=== PATIENT | male | born 1965 | race Caucasian/White ===

== ENCOUNTER 2020-08-14 13:22 | Emergency (ER) | payer OTHER ==
--- OUTSIDE RECORDS SUMMARY | 2020-08-14 13:24 | XMS REPORT | Continuity of Care Document ---
:1965 Author Organization [facility] t Address [address] [place] [address] Care Team Providers Name Role Phone Radiology Attending Clinician Unavailable Problems This patient has no known problems. Allergies, Adverse Reactions, Alerts This patient has no known allergies or adverse reactions. Medications This patient has no known medications. Procedures This patient has no known procedures. Encounters Start End Encounter Admission Attending Care Care Encounter Source Date/Time Date/Time Type Type Clinicians Facility Department ID 2020-06-30 2020-06-30 [facility] Radiology [facility] [id number] 13:20:00 23:59:00 Encounter [place] [id number] [place] [id number] [place] [id number] Results This patient has no known results.
[2020-08-14] MEDS ORDERED: NA CHLORIDE 0.9% 500 ML ONE (14:08)
[2020-08-14 14:11] LABS: Absolute Lymphocytes (CBC) 1.4 K/uL (0.7-4.9); Basophils % 0.5 % (0-1.3); Hematocrit 43.1 % (39.6-49.0); Lymphocytes % 14.2 % (15.3-44.8); MPV 7.8 fL (7.6-11.3); RBC Red Blood Cell Count 5.44 M/uL (4.33-5.43)
[2020-08-14 14:27] LABS: Albumin 3.7 g/dL (3.4-5.0); Bilirubin Direct 0.2 mg/dL (0-0.2); Bilirubin Total 0.7 mg/dL (0.2-1.0); Potassium 3.7 mmol/L (3.5-5.1); Protein, Total 7.3 g/dL (6.4-8.2)
--- NOTE | 2020-08-14 14:39 | RAD REPORT ---
EXAM DESCRIPTION: CT - Abdomen Pelvis W Contrast - 08/14/2020 2:09 pm CLINICAL HISTORY: Abd pain;Constipation COMPARISON: No comparisons TECHNIQUE: Biphasic, helical CT imaging of the abdomen and pelvis was performed following 100 ml non -ionic IV contrast. No oral contrast was given. All CT scans are performed using dose optimization technique as appropriate and may include automated exposure control or mA/KV adjustment according to patient size. FINDINGS: No suspicious findings in the lung bases. The liver, spleen, and pancreas show no suspicious findings. Gallbladder and biliary tree are also wi thout suspicious finding. Symmetric renal function is seen with no hydronephrosis or suspicious renal mass. No pyelonephritis o r acute parenchymal process. No bladder abnormalities. No adrenal abnormalities. Stomach is distended with retained fluid. No gastric wall thickening for mass. Duodenum is unremarkab le. Proximal jejunum is unremarkable as well. There is progressive dilatation from the mid jejunum to the distal ileum. Distal ileum loops are dilated up to 4 cm. An abrupt transition is present near th e terminal ileum. The terminal ileum itself of the ileocecal valve is decompressed. There is fluid wi thin nondilated colon. No active colon process. No free air, free fluid or inflammatory stranding. No hernia, mass or bulky lymphadenopathy. No suspicious bony findings. IMPRESSION: Significant small bowel obstruction with an abrupt transition in the distal ileum. Given the history, this is most likely Crohn's related stricture. No free air, extravasation of bowel content or surgically emergent finding.
[2020-08-14] MEDS ORDERED: dexAMETHasone 10 MG/ML VIAL ONE (15:19)
--- NOTE | 2020-08-14 15:44 | ER ---
Nurse's Notes [facility] [place] Name: Oz Cardona Age: 54 yrs Sex: Male : 1965 Arrival Date: 08/14/2020 Time: 13:25 Bed 17 Private MD: Nils Mills H Diagnosis: Small bowel obstruction with stricture;Dehydration Presentation: 08/14 13:47 Chief complaint: Patient states: Abdominal pains, constipation off/on for 3 months. ll1 Fare up this weekend. Dr. Frederick sent him in for eval. Had Remicade infusion last . Coronavirus screen: Client denies travel out of the [place] in the last 14 days. At this time, the client does not indicate any symptoms associated with coronavirus-19. The client reports previous COVID testing was negative. Ebola Screen: Patient denies travel to an Ebola-affected area in the 21 days before illness onset. Initial Sepsis Screen: Does the patient meet any 2 criteria? HR > 90 bpm. Risk Assessment: Do you want to hurt yourself or someone else? Patient reports no desire to harm self or others. Onset of symptoms was May 2020. 13:47 Method Of Arrival: Ambulatory [facility] 13:47 Acuity: SIENNA 3 ll1 Historical: - Allergies: 13:50 Zofran; ll1 - PMHx: 13:50 chrons; SBO; ll1 - PSHx: 13:50 endoscopy; finger surgery; ll1 - Immunization history:: Flu vaccine is up to date. - Social history:: Smoking status: Patient denies any tobacco usage or history of. Patient/guardian denies using IV drugs. - Family history:: not pertinent. - Hospitalizations: : No recent hospitalization is reported. Screenin:00 Abuse screen: Denies threats or abuse. Denies injuries from another. Nutritional jl7 screening: No deficits noted. Tuberculosis screening: No symptoms or risk factors identified. Fall Risk IV access (20 points). Assessment: 14:00 General: Appears in no apparent distress. uncomfortable, Behavior is cooperative, jl7 appropriate for age, anxious. Pain: Complains of pain in umbilical area Pain currently is 4 out of 10 on a pain scale. at worst was 9 out of 10 on a pain scale. Neuro: Level of Consciousness is awake, alert, obeys commands, Oriented to person, place, time, situation. Cardiovascular: Patient's skin is warm and dry. Respiratory: Airway is patent Respiratory effort is even, unlabored, Respiratory pattern is regular, symmetrical. GI: Abdomen is round Reports nausea. Derm: Skin is pink, warm \T\ dry. 15:00 Reassessment: Patient appears in no apparent distress at this time. Patient and/or jl7 family updated on plan of care and expected duration. Pain level reassessed. Patient is alert, oriented x 3, equal unlabored respirations, skin warm/dry/pink. 16:30 Reassessment: Spoke with patient about his concerns of not having a way to get home dm5 from [facility] if transferred via ambulance. I told him we could not just let him go home to get his stuff and come back because we could not account for the time him leaving to returning here. He would still end up without a vehicle in [place]. Pt states he understands the risks of leaving against medical advice, including that his insurance may question 2 ED visits. He understands that he will have to go through the ED again at [facility] to get admitted because it will no longer be a transfer. Pt wants the NG tube and IV removed so that he can get his stuff and drive himself to [facility]. Pt given 2 radiology disks and chart we would normally send with a transfer along with the address of the emergency room at [facility]. Vital Signs: 13:47 BP 137 / 96; Pulse 98; Resp 17; Temp 98.3; Pulse Ox 94% ; Pain 0/10; ll1 15:00 BP 112 / 87; Pulse 77; Resp 15; Pulse Ox 93% on R/A; jl7 16:00 BP 140 / 93; Pulse 98; Resp 19; Pulse Ox 98% ; 7 ED Course: 13:25 Patient arrived in ED. ds1 13:25 Nils Mills MD is Private Physician. ds1 13:45 Carlos Turpin MD is Attending Physician. rn 13:49 Triage completed. ll1 13:50 Arm band placed on Patient placed in an exam room, on a stretcher. ll1 13:55 Inserted saline lock: 20 gauge in right antecubital area, using aseptic technique. ll1 Blood collected. 14:00 Patient has correct armband on for positive identification. Bed in low position. Call jl7 light in reach. Side rails up X 1. 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 Pulse ox on. NIBP on. 14:04 Frankie Wilson, RN is Primary Nurse. jl7 14:11 CT Abd/Pelvis - PO and IV Contrast In Process Unspecified. EDMS 15:34 initiated transfer to [facility]. bd 16:15 NGT: inserted 16 Fr. via right nare. verified placement of air over stomach, verified jl7 return of gastric contents, to intermittent suction. Returned bile. Patient tolerated poorly. 16:31 pt accepted in transfer to [facility] by dr Ramos, admit approval given bd by Elliott Donato. 16:45 NGT: Removed intact. jl7 16:45 No provider procedures requiring assistance completed. IV discontinued, intact, jl7 bleeding controlled, No redness/swelling at site. Pressure dressing applied. Administered Medications: 15:10 Drug: NS 0.9% 500 ml Route: IV; Rate: bolus; Site: right antecubital; jl7 15:45 Follow up: Response: No adverse reaction; IV Status: Completed infusion; IV Intake: jl7 500ml 15:10 Drug: Decadron - Dexamethasone 10 mg Route: IVP; Site: right antecubital; jl7 15:45 Follow up: Response: No adverse reaction jl7 Intake: 15:45 IV: 500ml; Total: 500ml. jl7 Outcome: 15:44 ER care complete, transfer ordered by . belén 16:45 AMA AMA form signed jl7 17:04 Patient left the ED. iw Signatures: Dispatcher [employer] EDDE Jaky Murdock Deana, RN RN Christen Albert ds1 Nenita Tavarez RN RN iw Carlos Turpin MD MD rn Leal, Jahala RN RN jl7 Freya Alberts RN RN ll1 Corrections: (The following items were deleted from the chart) 16:54 14:00 Reassessment: 7 jl7
--- NOTE | 2020-08-14 15:44 | EDPHYS ---
Physician Documentation [facility] [place] Name: Oz Cardona Age: 54 yrs Sex: Male : 1965 Arrival Date: 08/14/2020 Time: 13:25 Bed 17 Private MD: Nils Mills H ED Physician Carlos Turpin HPI: 08/14 15:29 This 54 yrs old Male presents to ER via Ambulatory with complaints of rn Dehydration, Constipation - Sent by Dr Mills. 15:29 The patient presents with abdominal pain abdominal distention. Onset: The rn symptoms/episode began/occurred 3 week(s) ago. The symptoms do not radiate. Associated signs and symptoms: Pertinent positives: constipation, nausea, Pertinent negatives: blood in stools. The symptoms are described as crampy. Modifying factors: The symptoms are alleviated by nothing, the symptoms are aggravated by drinking, touching the area. Severity of pain: At its worst the pain was moderate in the emergency department the pain is unchanged. The patient has experienced a previous episode. The patient has been recently seen by a physician:. Reports 3 months ago began with abd issues, no hx of abd issues in past, + abd distension and nausea with constipation, CT at that time showed obstruction as well as inflammatory change in small and large bowel, thought to be from IBD, no tissue diagnosis. Reports only able to take sips of water, feels dehydrated. Has had steroids and 2 shots of remicade without help. Worse over last 3 weeks. . Historical: - Allergies: 13:50 Zofran; ll1 - PMHx: 13:50 chrons; SBO; ll1 - PSHx: 13:50 endoscopy; finger surgery; ll1 - Immunization history:: Flu vaccine is up to date. - Social history:: Smoking status: Patient denies any tobacco usage or history of. Patient/guardian denies using IV drugs. - Family history:: not pertinent. - Hospitalizations: : No recent hospitalization is reported. ROS: 15:39 Constitutional: Negative for fever, chills, and weight loss, Neck: Negative for injury, rn pain, and swelling, Cardiovascular: Negative for chest pain, palpitations, and edema, Respiratory: Negative for shortness of breath, cough, wheezing, and pleuritic chest pain, Abdomen/GI: + abd pain and distension MS/Extremity: Negative for injury and deformity, Skin: Negative for injury, rash, and discoloration, Neuro: Negative for headache, numbness, tingling, and seizure. Exam: 15:39 Constitutional: This is a well developed, well nourished patient who is awake, alert, rn and in no acute distress. Head/Face: Normocephalic, atraumatic. ENT: dry MM Cardiovascular: Regular rate and rhythm. No pulse deficits. Respiratory: No increased work of breathing, no retractions or nasal flaring. Abdomen/GI: soft, mild epigastric and periumbilical tenderness Skin: Warm, dry MS/ Extremity: Pulses equal, no cyanosis. Neurovascular intact. Full, normal range of motion. Equal circumference. Neuro: Awake and alert, GCS 15 Vital Signs: 13:47 BP 137 / 96; Pulse 98; Resp 17; Temp 98.3; Pulse Ox 94% ; Pain 0/10; ll1 15:00 BP 112 / 87; Pulse 77; Resp 15; Pulse Ox 93% on R/A; jl7 16:00 BP 140 / 93; Pulse 98; Resp 19; Pulse Ox 98% ; jl7 MDM: 13:45 Patient medically screened. rn 14:02 Refusal of service: The patient/guardian displays adequate decision making capability rn and despite a detailed discussion of alternatives, benefits, risks, and consequences refuses: Oral contrast. 15:01 ED course: Called Dr. Mills for consultation, did not answer, will try again.. rn 15:34 ED course: Spoke with GI at [facility], will be happy to see Mr. Cardona, but feels like rn most likely will require surgery. Patient had already expressed his concern regarding surgery at this hospital and told me if surgical repair warranted, wants to be transferred to [place] and will not have surgery here. . 15:39 Differential diagnosis: bowel obstruction, stricture, IBD. Data reviewed: vital signs, rn nurses notes, lab test result(s), radiologic studies, CT scan, and as a result, I will admit patient. Counseling: I had a detailed discussion with the patient and/or guardian regarding: the historical points, exam findings, and any diagnostic results supporting the discharge/admit diagnosis, lab results, radiology results, the need to transfer to another facility, for higher level of care, [facility] does not immediately have the required specialist. ED course: Accepted for consultation by Dr. Cespedes at [facility], requests admission to hospitalist. . 16:32 ED course: Pt now refusing transfer to [facility], after transfer has been completed and rn I have spoken with hospitalist/GI/surgeon. 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 Explained to him dangers of leaving here and if leaves would have to re-initiate everything, states he understands. Had ER direct Martine Garza speak with patient to explore options, patient settles on leaving AMA, getting his things, and then driving himself to [facility], even if has to check in to ER. . 08/14 13:50 Order name: Basic Metabolic Panel; Complete Time: 14:34 08/14 13:50 Order name: CBC with Diff; Complete Time: 14:16 08/14 13:50 Order name: Hepatic Function; Complete Time: 14:34 rn 08/14 13:50 Order name: Lipase; Complete Time: 14:34 08/14 16:55 Order name: CREATININE WHOLE BLOOD EDWY 08/14 13:50 Order name: IV Saline Lock; Complete Time: 14:05 08/14 13:50 Order name: Labs collected and sent; Complete Time: 14:05 08/14 13:51 Order name: CT Abd/Pelvis - PO and IV Contrast; Complete Time: 14:48 08/14 14:50 Order name: NG Tube; Complete Time: 16:20 rn 08/14 14:59 Order name: NPO; Complete Time: 16:20 rn Administered Medications: 15:10 Drug: NS 0.9% 500 ml Route: IV; Rate: bolus; Site: right antecubital; jl7 15:45 Follow up: Response: No adverse reaction; IV Status: Completed infusion; IV Intake: jl7 500ml 15:10 Drug: Decadron - Dexamethasone 10 mg Route: IVP; Site: right antecubital; jl7 15:45 Follow up: Response: No adverse reaction jl7 Disposition: 08/14/20 17:00 Patient has left against medical advice. Impression: Small bowel obstruction with stricture, Dehydration. - Patients states they are going to Home. - Condition is Stable. Follow up: Private Physician; When: Upon discharge from the Emergency Department; Reason: Recheck today's complaints, Re-evaluation by your physician. - Problem is an ongoing problem. - Symptoms have improved. Signatures: Dispatcher [employer] [facility] Neinta Tavarez, RN RN iw Carlos Turpin MD MD rn Leal, Jahala, RN RN jl7 Ferya Alberts RN RN ll1 Corrections: (The following items were deleted from the chart) 13:54 13:50 Abdomen Pelvis W Con+CT.RAD.BRZ ordered. [facility] 17:00 15:44 08/14/2020 15:44 Transfer ordered to [facility]. rn Diagnosis is Small Bowel Obstruction; Intestinal stricture; Dehydration. Reason for transfer: Higher level of care. Accepting physician is . Condition is Stable. Problem is an ongoing problem. Symptoms are unchanged. rn 17:04 17:00 08/14/2020 17:00 Patients has left against medical advice. Impression: Small iw bowel obstruction with stricture; Dehydration. Patient states they are going to Home. Condition is Stable. Follow up: Private Physician; When: Upon discharge from the Emergency Department; Reason: Recheck today's complaints, Re-evaluation by your physician. Problem is an ongoing problem. Symptoms have improved. rn
[2020-08-14] MEDS ORDERED: LIDOCAINE VISCOUS 2% SOLN 15 ML UDC ONE (15:46)
[2020-08-14 17:11] VITALS: TEMP 98.3
[2020-08-14 17:14] VITALS: BP 140/93; O2SAT 98
== END 2020-08-14 17:04 | disposition left against medical advice (07) ==
LOC: ER 13:22
DX: K56.609 Unspecified intestinal obstruction, unspecified as to partial versus complete obstruction (principal); E86.0 Dehydration
CPT/HCPCS: 96361; 85025; 80048; 36415; 82565; 80076; 83690; 74177; 96374; 99285; Q9967; J1100; J7040